=== PATIENT | male | born 1945 | race Caucasian/White ===

== ENCOUNTER 2018-10-05 23:16 | Emergency (ER) | payer MEDICARE ==
[~2018-10-05] VITALS: Ht 177.8 cm; Wt 91.3 kg
[2018-10-05 23:22] VITALS: BP 181/92
== END 2018-10-06 00:01 | disposition home or self-care (01) ==
LOC: ED 23:59
DX: K08.89 Other specified disorders of teeth and supporting structures (principal); E78.5 Hyperlipidemia, unspecified
CPT/HCPCS: 99283

== ENCOUNTER → 2020-09-11 | Outpatient (CLI) | payer MEDICARE ==
[~2020-09-11] MED LIST: OMNIPAQUE 350 MG/ML, 75ML BOTTLE ONE
== END | disposition home or self-care (01) ==
LOC: CFH 09:53
PROVIDERS: ATTEND Internal Medicine
DX: J98.4 Other disorders of lung (principal); J98.6 Disorders of diaphragm; R91.1 Solitary pulmonary nodule; N18.31 Chronic kidney disease, stage 3a
CPT/HCPCS: 71260; 82565; Q9967